=== PATIENT | male | born 1990 | race Caucasian/White ===

== ENCOUNTER 2022-10-02 23:12 | Emergency (ER) | payer MEDICARE, MEDICAID ==
[~2022-10-02] VITALS: Ht 182.9 cm; Wt 95.0 kg
[2022-10-02 23:20] VITALS: BP 139/94
== END 2022-10-03 04:36 | disposition left against medical advice (07) ==
LOC: ER 23:12
DX: M79.601 Pain in right arm (principal); Z53.21 Procedure and treatment not carried out due to patient leaving prior to being seen by health care provider; X58.XXXA Exposure to other specified factors, initial encounter; Y93.89 Activity, other specified; Y92.89 Other specified places as the place of occurrence of the external cause; Y99.8 Other external cause status
CPT/HCPCS: 73110

== ENCOUNTER 2023-08-13 20:45 | Emergency (ER) | payer MEDICARE, MEDICAID ==
[~2023-08-13] VITALS: Ht 182.9 cm; Wt 114.2 kg
[2023-08-13 20:49] VITALS: BP 165/114; PULSE 116; RESP 18; TEMP 98.2; O2SAT 98
== END 2023-08-14 03:22 | disposition left against medical advice (07) ==
LOC: ER 20:47
DX: Z00.8 Encounter for other general examination (principal); Z53.21 Procedure and treatment not carried out due to patient leaving prior to being seen by health care provider
CPT/HCPCS: 99281